=== PATIENT | male | born 1985 | race Caucasian/White ===

== ENCOUNTER 2017-08-08 11:11 | Emergency (ER) | payer OTHER ==
[~2017-08-08] VITALS: Ht 177.8 cm; Wt 106.6 kg
[2017-08-08] MEDS ORDERED: Prilosec Otc20 MG (11:28)
[2017-08-08 11:50] LABS: Source, Urine Clean Catch
[2017-08-08 12:30] LABS: BASOPHILS ABSOLUTE AUTO 0.04 K/mm3 (0.00-0.23); BASOPHILS PERCENT AUTO 1 % (0-2); EOSINOPHILS ABSOLUTE AUTO 0.07 K/mm3 (0.00-0.68); EOSINOPHILS PERCENT AUTO 1 % (0-6); Hematocrit 41.9 % (37.0-53.0); Hemoglobin 14.3 g/dL (13.5-17.5); IMMATURE GRAN ABSOLUTE AUTO 0.03 K/mm3 (0.00-0.10); IMMATURE GRAN PERCENT AUTO 0 % (0-1); LYMPHOCYTES ABSOLUTE AUTO 1.58 K/mm3 (0.84-5.20); LYMPHOCYTES PERCENT AUTO 20 % (21-46); MONOCYTES ABSOLUTE AUTO 0.69 K/mm3 (0.16-1.47); MONOCYTES PERCENT AUTO 9 % (4-13); Mean Corpuscular HGB 28.6 pg (26.0-34.0); Mean Corpuscular HGB Conc 34.1 g/dL (31.5-36.5); Mean Corpuscular Volume 84 fL (80-100); Mean Platelet Volume 8.5 fL (9.1-12.4); NEUTROPHILS PERCENT AUTO 69 % (41-73); Platelet Count 230 K/mm3 (150-400); RDW Standard Deviation 36.4 fL (35.1-46.3); White Blood Cell Count 7.81 K/mm3 (4.00-11.30)
[2017-08-08 12:31] LABS: Appearance, Urine Clear (Clear); Bilirubin, Urine Neg (Neg); Blood, Urine Neg (Neg); Color, Urine Yellow (P-Yellow); Glucose Qualitative, Urine Neg (Neg); Ketones, Urine Neg (Neg); Leukocyte Esterase, Urine Neg (Neg); Nitrite, Urine Neg (Neg); Protein, Urine 1+ (Neg); Urobilinogen, Urine 1+ (Normal)
[2017-08-08 12:48] LABS: Alanine Aminotransfer (ALT/SGP 40 U/L (12-78); Albumin, Blood 3.2 g/dL (3.4-5.0); Albumin/Globulin Ratio 0.8 (0.8-1.8); Alk Phos 69 U/L (50-136); Anion Gap 7 mmol/L (6-16); Aspartate Aminotrans (AST/SGOT 29 U/L (12-37); Bilirubin, Total 0.7 mg/dL (0.1-1.0); Blood Urea Nitrogen 9 mg/dL (8-24); Bun/Creatinine Ratio 11.1 (12.0-20.0); CO2, Blood 28 mmol/L (21-32); Calcium, Blood 8.4 mg/dL (8.5-10.1); Chloride, Blood 102 mmol/L (98-108); Creatinine, Blood 0.81 mg/dL (0.60-1.20); Glomerular Filtration Rate >60 (60-); Glucose, Blood 99 mg/dL (70-99); Sodium, Blood 137 mmol/L (136-145); Total Protein, Blood 7.2 g/dL (6.4-8.2)
[2017-08-08] MEDS ORDERED: Vibramycin100 MG PO (13:58)
== END 2017-08-08 14:19 | disposition home or self-care (01) ==
LOC: ER 11:11
PROVIDERS: Emergency Medicine
DX: J18.9 Pneumonia, unspecified organism (principal); K21.9 Gastro-esophageal reflux disease without esophagitis; Z87.891 Personal history of nicotine dependence; Z88.0 Allergy status to penicillin; Z79.899 Other long term (current) drug therapy
CPT/HCPCS: 71046; 74176; 80053; 83690; 85025; 93005; 93010; 96361; 96374; 99284; J3010; J7030

== ENCOUNTER → 2019-05-04 | Outpatient (CLI) | payer OTHER ==
[~2019-05-04] MED LIST: Ciloxan5 ML RIGHTEYE; Prilosec Otc20 MG; Vibramycin100 MG PO
[2019-05-04 10:21] LABS: Alanine Aminotransfer (ALT/SGP 112 U/L (12-78); Albumin, Blood 3.8 g/dL (3.4-5.0); Albumin/Globulin Ratio 0.9 (0.8-1.8); Alk Phos 75 U/L (50-136); Anion Gap 8 mmol/L (6-16); Aspartate Aminotrans (AST/SGOT 42 U/L (12-37); Bilirubin, Total 0.2 mg/dL (0.1-1.0); Blood Urea Nitrogen 15 mg/dL (8-24); Bun/Creatinine Ratio 20.9 (12.0-20.0); CO2, Blood 26 mmol/L (21-32); Calcium, Blood 9.1 mg/dL (8.5-10.1); Chloride, Blood 108 mmol/L (98-108); Creatinine, Blood 0.72 mg/dL (0.60-1.20); Globulin, Blood 4.1 g/dL (2.2-4.0); Glomerular Filtration Rate >60 (60-); Glucose, Blood 101 mg/dL (70-99); Potassium, Blood 4.1 mmol/L (3.5-5.5); Sodium, Blood 142 mmol/L (136-145); Total Protein, Blood 7.9 g/dL (6.4-8.2)
== END | disposition home or self-care (01) ==
LOC: LAB SHORT 08:53 → LAB 08:53
PROVIDERS: Nurse Practitioner
DX: I10 Essential (primary) hypertension (principal); R42 Dizziness and giddiness
CPT/HCPCS: 80053

== ENCOUNTER → 2019-05-11 | Outpatient (CLI) | payer OTHER ==
[~2019-05-11] MED LIST changes: +LISI5 PO
[2019-05-11 15:07] LABS: BASOPHILS ABSOLUTE AUTO 0.06 K/mm3 (0.00-0.23); BASOPHILS PERCENT AUTO 1 % (0-2); EOSINOPHILS ABSOLUTE AUTO 0.26 K/mm3 (0.00-0.68); EOSINOPHILS PERCENT AUTO 3 % (0-6); Hematocrit 53.8 % (37.0-53.0); IMMATURE GRAN ABSOLUTE AUTO 0.04 K/mm3 (0.00-0.10); IMMATURE GRAN PERCENT AUTO 1 % (0-1); LYMPHOCYTES ABSOLUTE AUTO 2.81 K/mm3 (0.84-5.20); LYMPHOCYTES PERCENT AUTO 35 % (21-46); MONOCYTES ABSOLUTE AUTO 0.67 K/mm3 (0.16-1.47); MONOCYTES PERCENT AUTO 8 % (4-13); Mean Corpuscular HGB 28.4 pg (26.0-34.0); Mean Corpuscular HGB Conc 33.5 g/dL (31.5-36.5); Mean Corpuscular Volume 85 fL (80-100); NEUTROPHILS ABSOLUTE AUTO 4.19 K/mm3 (1.96-9.15); NEUTROPHILS PERCENT AUTO 52 % (41-73); Platelet Count 302 K/mm3 (150-400); RDW Coefficient Variation 11.7 % (11.7-14.2); RDW Standard Deviation 36.2 fL (35.1-46.3); Red Blood Cell Count 6.34 M/mm3 (4.30-5.90); White Blood Cell Count 8.03 K/mm3 (4.00-11.30)
[2019-05-11 15:23] LABS: Alanine Aminotransfer (ALT/SGP 176 U/L (12-78); Albumin, Blood 4.1 g/dL (3.4-5.0); Albumin/Globulin Ratio 0.9 (0.8-1.8); Alk Phos 69 U/L (50-136); Anion Gap 5 mmol/L (6-16); Aspartate Aminotrans (AST/SGOT 141 U/L (12-37); Bilirubin, Total 0.6 mg/dL (0.1-1.0); Blood Urea Nitrogen 16 mg/dL (8-24); Bun/Creatinine Ratio 21.4 (12.0-20.0); CO2, Blood 26 mmol/L (21-32); Calcium, Blood 9.5 mg/dL (8.5-10.1); Chloride, Blood 102 mmol/L (98-108); Creatinine, Blood 0.75 mg/dL (0.60-1.20); Globulin, Blood 4.5 g/dL (2.2-4.0); Glomerular Filtration Rate >60 (60-); Glucose, Blood 109 mg/dL (70-99); Potassium, Blood 3.9 mmol/L (3.5-5.5); Sodium, Blood 133 mmol/L (136-145); Total Protein, Blood 8.6 g/dL (6.4-8.2); Troponin I <0.015 ng/mL (0.000-0.040)
[2019-05-11 15:39] LABS: CPK Creatine Kinase 5660 U/L (39-308)
== END | disposition home or self-care (01) ==
LOC: LAB SHORT 13:37 → LAB 13:37
PROVIDERS: Nurse Practitioner Family
DX: R07.9 Chest pain, unspecified (principal); R53.83 Other fatigue; M79.10 Myalgia, unspecified site; R68.84 Jaw pain
CPT/HCPCS: 80053; 82550; 84484; 85025

== ENCOUNTER 2023-04-06 04:22 | Emergency (ER) | payer OTHER ==
[~2023-04-06] VITALS: Ht 177.8 cm; Wt 109.8 kg
[2023-04-06 04:36] VITALS: BP 195/121
[2023-04-06] MEDS ORDERED: Ibuprofen 600 MG Tab PO ONE (05:15)
[2023-04-06] MEDS ORDERED: Lidocaine 4% 1 Patch TOP ONE (05:15)
[2023-04-06] MEDS ORDERED: OxyCODONE HCL 5 MG TAB PO ONE (05:15)
[2023-04-06] MEDS ORDERED: Acetaminophen 500 MG Tab PO ONE (05:20)
[2023-04-06] MEDS ORDERED: Ibuprofen600 MG PO (05:56)
[2023-04-06] MEDS ORDERED: ACET500 PO (05:56)
[2023-04-06] MEDS ORDERED: LIDO700A20 TOP (05:56)
== END 2023-04-06 06:30 | disposition home or self-care (01) ==
LOC: ER 04:22
DX: S33.5XXA Sprain of ligaments of lumbar spine, initial encounter (principal); Z87.891 Personal history of nicotine dependence; Z79.899 Other long term (current) drug therapy; Z88.0 Allergy status to penicillin; Z88.5 Allergy status to narcotic agent; X50.0XXA Overexertion from strenuous movement or load, initial encounter; Y93.F2 Activity, caregiving, lifting
CPT/HCPCS: 72100; 99283-25; A9270

== ENCOUNTER 2023-11-03 10:03 | Observation (INO) | payer OTHER ==
[~2023-11-03] VITALS: Ht 177.8 cm; Wt 102.3 kg
[~2023-11-03 10:03] MED LIST changes: +ACET500 PO; +Ibuprofen600 MG PO; +LIDO700A20 TOP
[2023-11-03 10:40] LABS: BASOPHILS ABSOLUTE AUTO 0.08 K/mm3 (0.00-0.23); BASOPHILS PERCENT AUTO 1 % (0-2); EOSINOPHILS ABSOLUTE AUTO 0.22 K/mm3 (0.00-0.68); EOSINOPHILS PERCENT AUTO 4 % (0-6); Hemoglobin 17.5 g/dL (13.5-17.5); IMMATURE GRAN ABSOLUTE AUTO 0.01 K/mm3 (0.00-0.10); IMMATURE GRAN PERCENT AUTO 0 % (0-1); LYMPHOCYTES ABSOLUTE AUTO 1.57 K/mm3 (0.84-5.20); LYMPHOCYTES PERCENT AUTO 25 % (21-46); MONOCYTES ABSOLUTE AUTO 0.59 K/mm3 (0.16-1.47); MONOCYTES PERCENT AUTO 10 % (4-13); Mean Corpuscular HGB 29.4 pg (26.0-34.0); Mean Corpuscular Volume 84 fL (80-100); Mean Platelet Volume 8.6 fL (9.1-12.4); NEUTROPHILS ABSOLUTE AUTO 3.76 K/mm3 (1.96-9.15); NEUTROPHILS PERCENT AUTO 60 % (41-73); Platelet Count 209 K/mm3 (150-400); RDW Standard Deviation 36.9 fL (35.1-46.3); Red Blood Cell Count 5.95 M/mm3 (4.30-5.90); White Blood Cell Count 6.23 K/mm3 (4.00-11.30)
[2023-11-03] MEDS ORDERED: Acetaminophen 500 MG Tab PO ONE (10:55)
[2023-11-03] MEDS ORDERED: Nitroglycerin 0.4 MG SUBL SL ONE (10:55)
[2023-11-03 11:01] LABS: Bun/Creatinine Ratio 11.2 (12.0-20.0); Calcium, Blood 9.5 mg/dL (8.5-10.1); Creatinine, Blood 0.71 mg/dL (0.60-1.20); Potassium, Blood 3.5 mmol/L (3.5-5.5)
[2023-11-03] MEDS ORDERED: HydrALAZINE HCl 20 MG / ML 1ML Vial IV ONE ×2 (12:45→13:35)
[2023-11-03] MEDS ORDERED: Aspirin 325 MG Tab PO ONE (13:50)
[2023-11-03] MEDS ORDERED: Furosemide 10 MG/ML 4ML Vial IV ONE (15:00)
[2023-11-03] MEDS ORDERED: Labetalol HCL 5 MG/ML 4ML Injection (Single Dose) IV PRN ×2 (15:00→15:10)
[2023-11-03] MEDS ORDERED: Lisinopril 10 MG Tab PO SCH (15:00)
[2023-11-03] MEDS ORDERED: LORazepam 1 MG Tab PO PRN (15:05)
[2023-11-03] MEDS ORDERED: Acetaminophen 325 MG TABLET PO PRN (15:05)
[2023-11-03] MEDS ORDERED: HYDROmorphone HCl/Pf 1MG SYR IV PRN (15:05)
[2023-11-03] MEDS ORDERED: Zolpidem Tartrate 10 MG Tab PO PRN (15:05)
[2023-11-03 16:19] VITALS: BP 174/106
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
[2023-11-03 21:03] VITALS: BP 152/84
[2023-11-03 21:47] VITALS: BP 152/84
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
[2023-11-04 03:55] VITALS: BP 154/92
--- NOTE | 2023-11-04 04:52 | NUR ---
SHIFT SUMMARY NO ACUTE CHANGES THIS SHIFT. PT CONTINUES TO REST IN BED SLEEPING BUT AROUSABLE. PT ANSWERS QUESTIONS APPROPRIATELY, FOLLOWS DIRECTON WHEN PROMPTED AND IS ABLE TO MAKE HIS NEEDS KNOWN. PT HAS L BKA WITH PROSTHESIS, AMBULATES IN THE ROOM INDEPENDENTLY. PT MOVES EXTREMITIES EQUALLY BILATERALLY. PT ANXIOUS AT TIMES, MEDICATED PER EMAR. HR 50-100'S, SBP 140-160'S. PT STATES THAT HE OCCASIONALLY HAS CHEST HEAVINESS THAT HE BELIEVES CORRELATES WITH HIS ANXIETY, HE ALSO STATES THAT HE FEELS SOB DURING THESE TIMES WELL. PT HAS EXPRESSED ONE EPISODE OF FEELING THIS WAY THIS SHIFT. PT ON RA, OXYGEN SATURATION WILL OCCASIONALLY DROP INTO THE 80'S WHILE THE PATIENT IS SLEEPING THEN QUICKLY COME BACK UP TO >95%. ABDOMEN SOFT AND ROUND, BOWEL TONES ACTIVE IN ALL FOUR QUADRANTS. PT AMBULATES TO BATHROOM IN ROOM TO VOID. PIV IN PLACE TO RAC SL. BED IN LOWEST POSITION, CALL LIGHT WITHIN REACH, CARE CONTINUES.
[2023-11-04 04:53] LABS: Bun/Creatinine Ratio 17.4 (12.0-20.0); Calcium, Blood 9.6 mg/dL (8.5-10.1); Creatinine, Blood 0.86 mg/dL (0.60-1.20)
--- NOTE | 2023-11-04 05:16 | NUR ---
PT UPDATE CALLED AND SPOKE WITH THE RESIDENT REGARDING PT AM LABS, ORDERS RECEIVED, SEE EMAR FOR MORE INFORMATION. CARE CONTINUES.
[2023-11-04] MEDS ORDERED: Potassium Chloride 20 MEQ TabCR PO ONE (05:20)
[2023-11-04 08:43] VITALS: BP 141/87
[2023-11-04] MEDS ORDERED: Enoxaparin 40 MG/0.4 ML SYR SC SCH (09:00)
[2023-11-04] MEDS ORDERED: BUSP5 PO (10:54)
[2023-11-04] MEDS ORDERED: Lisinopril-Hct1 EAC4 PO (10:55)
[2023-11-04 10:56] VITALS: BP 153/101
[2023-11-04] MEDS ORDERED: POTA10T PO (10:56)
--- NOTE | 2023-11-04 10:59 | NUR ---
UPDATE PT A&OX4, CALM AND COOPERATIVE WITH CARE. DENIES CP/ SOB THIS AM. BP MODERATELY ELEVATED AFTER DISCUSSING HOME STRESSORS. TOLERATING PO MEDS. INDEPENDENT IN ROOM. PLAN TO DISCHARGE TO HOME TODAY.
--- NOTE | 2023-11-04 11:39 | NUR ---
DC IV DC'D. PT DC'D TO HOME WITH SELF, AMBULATES WITHOUT ASSISTANCE. PRESCRIPTIONS SENT TO [facility].
== END 2023-11-04 11:35 | disposition home or self-care (01) ==
LOC: ER 10:03 → PCU 10:04
PROVIDERS: Emergency Medicine; ADMIT Internal Medicine
DX: I16.0 Hypertensive urgency (principal); I20.89 Other forms of angina pectoris; I10 Essential (primary) hypertension; F10.20 Alcohol dependence, uncomplicated; F41.9 Anxiety disorder, unspecified; R00.1 Bradycardia, unspecified; T46.3X5A Adverse effect of coronary vasodilators, initial encounter; R74.01 Elevation of levels of liver transaminase levels; Z89.512 Acquired absence of left leg below knee; Z87.891 Personal history of nicotine dependence; Z88.0 Allergy status to penicillin; Z88.5 Allergy status to narcotic agent; Z79.899 Other long term (current) drug therapy
CPT/HCPCS: 36415; 71045; 80048; 80053; 84484; 85025; 93005; 93010; 94762; 96372; 96374; 96375; 96376; 99285-25; A9270; G0378; J0360; J1650; J1940

== ENCOUNTER 2024-05-01 08:18 | Observation (INO) | payer OTHER ==
[~2024-05-01] VITALS: Ht 177.8 cm; Wt 95.0 kg
[~2024-05-01 08:18] MED LIST changes: +BUSP5 PO; +POTA10T PO; +Prinivil10 MG PO
[2024-05-01 10:12] LABS: BASOPHILS ABSOLUTE AUTO 0.07 K/mm3 (0.00-0.23); BASOPHILS PERCENT AUTO 1 % (0-2); EOSINOPHILS ABSOLUTE AUTO 0.14 K/mm3 (0.00-0.68); EOSINOPHILS PERCENT AUTO 2 % (0-6); Hematocrit 47.2 % (37.0-53.0); Hemoglobin 16.4 g/dL (13.5-17.5); IMMATURE GRAN ABSOLUTE AUTO 0.01 K/mm3 (0.00-0.10); IMMATURE GRAN PERCENT AUTO 0 % (0-1); LYMPHOCYTES ABSOLUTE AUTO 2.11 K/mm3 (0.84-5.20); LYMPHOCYTES PERCENT AUTO 32 % (21-46); MONOCYTES ABSOLUTE AUTO 0.66 K/mm3 (0.16-1.47); MONOCYTES PERCENT AUTO 10 % (4-13); Mean Corpuscular HGB 29.8 pg (26.0-34.0); Mean Corpuscular HGB Conc 34.7 g/dL (31.5-36.5); Mean Corpuscular Volume 86 fL (80-100); Mean Platelet Volume 8.2 fL (9.1-12.4); NEUTROPHILS ABSOLUTE AUTO 3.64 K/mm3 (1.96-9.15); NEUTROPHILS PERCENT AUTO 55 % (41-73); Platelet Count 206 K/mm3 (150-400); RDW Coefficient Variation 12.4 % (11.7-14.2); RDW Standard Deviation 39.1 fL (35.1-46.3); White Blood Cell Count 6.63 K/mm3 (4.00-11.30)
[2024-05-01 10:21] LABS: Bun/Creatinine Ratio 14.3 (12.0-20.0); Calcium, Blood 8.9 mg/dL (8.5-10.1); Creatinine, Blood 0.56 mg/dL (0.60-1.20); Potassium, Blood 3.5 mmol/L (3.5-5.5)
[2024-05-01] MEDS ORDERED: Aspirin 325 MG Tab PO ONE (12:40)
[2024-05-01] MEDS ORDERED: LORazepam 2 MG/ML 1ML Injection IV ONE ×3 (12:50→13:30)
[2024-05-01] MEDS ORDERED: LORazepam 2 MG/ML 1ML Injection ONE (13:23)
[2024-05-01] MEDS ORDERED: LORazepam 2 MG/ML 1ML Injection IV PRN (14:40)
[2024-05-01] MEDS ORDERED: FLU VACC TS2024-25(6MOS UP)/PF 45 MCG/0.5 ML SYRINGE IM PRN (14:40)
[2024-05-01] MEDS ORDERED: ChlordiazePOXIDE 25 MG Cap PO PRN (14:40)
[2024-05-01] MEDS ORDERED: Ondansetron HCl 2 MG / ML 2ML Vial IV PRN (14:40)
[2024-05-01] MEDS ORDERED: Folic Acid 1 MG in NS 50 ML IV SCH (14:41)
[2024-05-01] MEDS ORDERED: Thiamine HCl 250 MG in NS 100 ML IV SCH (16:00)
[2024-05-01 17:35] VITALS: BP 178/112
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
[2024-05-01 19:42] VITALS: BP 195/109
--- NOTE | 2024-05-01 19:56 | NUR ---
RN CALLED HOSPITALIST AT 1950 FOR PT BP 195/109. RN WAS INFORMED TO KEEP MONITORING BP AND TO CALL AGAIN IF SBP >220.
[2024-05-01] MEDS ORDERED: Gabapentin 300 MG Cap PO SCH (21:00)
[2024-05-01] MEDS ORDERED: Docusate Sodium 100 MG Cap PO SCH (21:00)
[2024-05-02] VITALS (10 sets, daily range): BP systolic 140–193; BP diastolic 78–134
[2024-05-02 05:24] LABS: BASOPHILS ABSOLUTE AUTO 0.08 K/mm3 (0.00-0.23); BASOPHILS PERCENT AUTO 1 % (0-2); EOSINOPHILS ABSOLUTE AUTO 0.24 K/mm3 (0.00-0.68); EOSINOPHILS PERCENT AUTO 3 % (0-6); Hematocrit 45.6 % (37.0-53.0); Hemoglobin 16.2 g/dL (13.5-17.5); IMMATURE GRAN ABSOLUTE AUTO 0.02 K/mm3 (0.00-0.10); IMMATURE GRAN PERCENT AUTO 0 % (0-1); LYMPHOCYTES ABSOLUTE AUTO 2.06 K/mm3 (0.84-5.20); LYMPHOCYTES PERCENT AUTO 27 % (21-46); MONOCYTES ABSOLUTE AUTO 0.74 K/mm3 (0.16-1.47); MONOCYTES PERCENT AUTO 10 % (4-13); Mean Corpuscular HGB 30.2 pg (26.0-34.0); Mean Corpuscular HGB Conc 35.5 g/dL (31.5-36.5); Mean Corpuscular Volume 85 fL (80-100); Mean Platelet Volume 8.6 fL (9.1-12.4); NEUTROPHILS ABSOLUTE AUTO 4.39 K/mm3 (1.96-9.15); NEUTROPHILS PERCENT AUTO 58 % (41-73); Platelet Count 189 K/mm3 (150-400); RDW Coefficient Variation 12.4 % (11.7-14.2); Red Blood Cell Count 5.37 M/mm3 (4.30-5.90); White Blood Cell Count 7.53 K/mm3 (4.00-11.30)
[2024-05-02 05:49] LABS: Albumin, Blood 3.4 g/dL (3.4-5.0); Albumin/Globulin Ratio 0.9 (0.8-1.8); Bilirubin, Total 1.2 mg/dL (0.1-1.0); Bun/Creatinine Ratio 17.7 (12.0-20.0); Calcium, Blood 8.9 mg/dL (8.5-10.1); Creatinine, Blood 0.62 mg/dL (0.60-1.20); Globulin, Blood 3.6 g/dL (2.2-4.0); Potassium, Blood 2.9 mmol/L (3.5-5.5)
--- NOTE | 2024-05-02 06:02 | NUR ---
SHIFT SUMMARY PT HAS BEEN RESTING IN BED OVERNIGHT. PT HAD COMPLAINTS OF ANXIETY, BUT IT HAS BEEN RELIEVED BY REST AND MEDICATIONS (SEE EMAR). PT AOX4, CALM AND COOPERATIVE. PT HAS LEFT SIDED WEAKNESS, AND REPORTS LEFT SIDED NUMBNESS AND TINGLING. PT HAS BEEN INDEPENDENT AMBULATING. PT IS ON TELEMETRY. NO ACUTE EVENTS OVERNIGHT.
[2024-05-02] MEDS ORDERED: Aspirin 81 MG Chew PO SCH (09:00)
[2024-05-02] MEDS ORDERED: Enoxaparin 40 MG/0.4 ML SYR SC SCH (09:00)
[2024-05-02] MEDS ORDERED: Atorvastatin 10 MG Tab PO SCH (09:00)
[2024-05-02] MEDS ORDERED: Metoprolol Tartrate 1 MG/ML 5 ML VIAL IV ONE (13:00)
[2024-05-02] MEDS ORDERED: NS 250 ML IV PRN (13:35)
[2024-05-02] MEDS ORDERED: Metoprolol Tartrate 1 MG/ML 5 ML VIAL IV PRN (16:40)
[2024-05-02] MEDS ORDERED: Potassium Chloride 10 Meq Tablet SA PO ONE (16:40)
[2024-05-02] MEDS ORDERED: Lisinopril 10 MG Tab PO SCH (17:00)
[2024-05-02] MEDS ORDERED: Lisinopril 10 MG Tab PO STA (18:43)
[2024-05-02] MEDS ORDERED: HydrALAZINE HCl 20 MG / ML 1ML Vial IV PRN (18:50)
--- NOTE | 2024-05-02 19:32 | NUR ---
SHIFT SUMMARY PATIENT A/OX4, ABLE TO MAKE NEEDS KNOWN. PLEASANT AND COOPERATIVE WITH STAFF. PATIENT COMPLAINING OF SEVERE ANXIETY. PATIENT ALSOS TATES HE HAS FEAR OF HOSPITALS. PRN ATIVAN ADMINISTERED PER MAY. MRI OBTAINED TODAY, NEGATIVE FOR CVA. POTASSIUM REPLACED ORALLY. PATIENT'S BLOOD PRESSURE ELAVATED 170-180s/110-120s ALL SHIFT, NOTIFIED THIS AM. NO BLOOD PRESSURE MEDICATIONS ADMINISTERED UNTIL RESULTS OF MRI RECIEVED TO ALLOW PERMISSIVE HYPERTENTION. MULTIPLE BLOOD PRESSURE MEDICATIONS ADMINISTERED PER MAR LATER THIS EVENING. NONE EFFECTIVE THUS FAR. PATIENT WANTING TO LEAVE AMA, BUT AFTER [facility] EDUCATION REGARDING [place] RISK FACTORS PATIENT AGREEABLE TO STAY. EX , CATHY, AT BEDSIDE AND PATIENT'S CHILDREN AT BEDSIDE CURRENTLY. PATIENT WITH FAMILY AT BEDSIDE THROUGHOUT THE SHIFT. TELEMETRY IN PLACE, NO EVENTS NOTED. NO OTHER CONCERNS AT THIS TIME. REPORT GIVEN TO PATTERN DRAFTER RN.
[2024-05-03 00:08] VITALS: BP 153/95
[2024-05-03 04:17] VITALS: BP 132/99
--- NOTE | 2024-05-03 05:03 | NUR ---
SHIFT SUMMARY PT A&Ox4. PT REPORTS ANXIETY AND MEDICATED PER EMAR. NO C/O PAIN. FAMILY AT BEDSIDE T/O NIGHT. VSS AND BLOOD PRESSURE IMPROVED T/O NIGHT BLOOD PRESSURE RANGE WAS 132-153/78-99. PT REPORTS LEFT SIDE DEFICITS THAT ARE IMPROVING. IND IN ROOM. NO EVENTS ON TELE. BED IN LOWEST POSITION AND CALL LIGHT IN REACH.
[2024-05-03 05:55] LABS: Anion Gap 10 mmol/L (3-11); Blood Urea Nitrogen 11 mg/dL (8-24); CHOL/HDL RATIO 3.7; CO2, Blood 26 mmol/L (21-32); Calcium, Blood 9.2 mg/dL (8.5-10.1); Chloride, Blood 105 mmol/L (98-108); Cholesterol 226 mg/dL (50-200); Creatinine, Blood 0.69 mg/dL (0.60-1.20); Glomerular Filtration Rate 120 (60-); Glucose, Blood 102 mg/dL (70-99); HDL Cholesterol 61 mg/dL (>39); LDL/HDL RATIO 2.4; Low Density Lipoprotein Chol 147 mg/dL (0-110); Magnesium, Blood 1.9 mg/dL (1.6-2.4); Potassium, Blood 3.4 mmol/L (3.5-5.5); Sodium, Blood 138 mmol/L (136-145); Triglycerides 88 mg/dL (30-160); Very Low Density Lipoprot Chol 17 mg/dL (6-32)
[2024-05-03 07:22] VITALS: BP 166/107
[2024-05-03] MEDS ORDERED: Metoprolol Succinate 25 MG TABCR PO SCH (09:00)
[2024-05-03] MEDS ORDERED: Lisinopril 20 MG Tab PO SCH (09:00)
[2024-05-03 09:40] VITALS: BP 143/98
[2024-05-03 10:38] VITALS: BP 146/95
[2024-05-03 11:46] VITALS: BP 158/104
[2024-05-03] MEDS ORDERED: METO25ER PO (12:26)
[2024-05-03] MEDS ORDERED: ASPI81CH PO (12:26)
[2024-05-03] MEDS ORDERED: ATOR20 PO (12:26)
[2024-05-03] MEDS ORDERED: ALPR.25 PO (12:27)
--- NOTE | 2024-05-03 13:11 | NUR ---
pt discharged PT VERBALIZED UNDERSTANDING OF THE DC INSTRUCTIONS. PTS PRESCRIPTIONS FAXED TO [facility]. PT WAS GIVEN A PRESCRIPTION HARD COPY FOR XANAX. THE PT DECLINED A WHEELCHAR TRANSPORT AND AMBULATED OUY ON HIS OWN ACCORDN STEADY ON HIS FEET
--- NOTE | 2024-05-03 13:32 | NUR ---
PT DISCHARGED HOME WITH FAMILY. EDUCATION PROVIDED, ALL BELONGINGS SENT WITH PT.
== END 2024-05-03 13:46 | disposition home or self-care (01) ==
LOC: ER 08:18 → MEDS 08:19 → ENPENDDIS 05-03 11:24 → MEDS 05-03 13:46
PROVIDERS: Internal Medicine; Student in an Organized Health Care Education/Training Program; ADMIT Internal Medicine
DX: R53.1 Weakness (principal); R29.810 Facial weakness; R20.2 Paresthesia of skin; R20.0 Anesthesia of skin; I16.0 Hypertensive urgency; E87.6 Hypokalemia; F41.0 Panic disorder [episodic paroxysmal anxiety]; F10.20 Alcohol dependence, uncomplicated; I10 Essential (primary) hypertension; Z88.0 Allergy status to penicillin; Z79.899 Other long term (current) drug therapy
CPT/HCPCS: 36415; 70450; 70496; 70498; 70551; 71046; 72125; 80048; 80053; 80061; 83735; 84484; 85025; 85379; 93005; 93010; 93306; 96365-59; 96366; 96368; 96372; 96375; 96375-59; 96376; 99285-25; A9270; G0378; J0360; J1650; J2060; J3411; J7050; Q9967

== ENCOUNTER 2024-10-24 10:45 | Observation (INO) | payer OTHER ==
[~2024-10-24] VITALS: Ht 177.8 cm; Wt 90.0 kg
[~2024-10-24 10:45] MED LIST changes: +ALPR.25 PO; +ASPI81CH PO; +ATOR20 PO; +METO25ER PO
[2024-10-24] MEDS ORDERED: NS 1,000 ML IV SCH ×2 (11:05→12:20)
[2024-10-24] MEDS ORDERED: LORazepam 2 MG/ML 1ML Injection IV ONE ×2 (11:05→15:30)
[2024-10-24 11:17] LABS: BASOPHILS ABSOLUTE AUTO 0.09 K/mm3 (0.00-0.23); BASOPHILS PERCENT AUTO 2 % (0-2); EOSINOPHILS ABSOLUTE AUTO 0.21 K/mm3 (0.00-0.68); EOSINOPHILS PERCENT AUTO 4 % (0-6); Hematocrit 47.0 % (37.0-53.0); Hemoglobin 16.4 g/dL (13.5-17.5); IMMATURE GRAN ABSOLUTE AUTO 0.02 K/mm3 (0.00-0.10); IMMATURE GRAN PERCENT AUTO 0 % (0-1); LYMPHOCYTES ABSOLUTE AUTO 1.62 K/mm3 (0.84-5.20); LYMPHOCYTES PERCENT AUTO 28 % (21-46); MONOCYTES ABSOLUTE AUTO 0.43 K/mm3 (0.16-1.47); MONOCYTES PERCENT AUTO 7 % (4-13); Mean Corpuscular HGB Conc 34.9 g/dL (31.5-36.5); Mean Corpuscular Volume 89 fL (80-100); NEUTROPHILS ABSOLUTE AUTO 3.43 K/mm3 (1.96-9.15); NEUTROPHILS PERCENT AUTO 59 % (41-73); NRBC ABSOLUTE 0.00 K/mm3 (0.00-0.02); NRBC Auto 0.0 /100 WBC (0.0-0.2); Platelet Count 181 K/mm3 (150-400); RDW Coefficient Variation 11.9 % (11.7-14.2); RDW Standard Deviation 38.6 fL (35.1-46.3)
[2024-10-24 12:36] LABS: Alanine Aminotransfer (ALT/SGP 130.0 U/L (12-78); Albumin, Blood 3.9 g/dL (3.4-5.0); Albumin/Globulin Ratio 1.0 (0.8-1.8); Anion Gap 14.0 mmol/L (3-11); Aspartate Aminotrans (AST/SGOT 128.0 U/L (12-37); Bilirubin, Total 0.8 mg/dL (0.1-1.0); Blood Urea Nitrogen 7.0 mg/dL (8-24); CO2, Blood 25.0 mmol/L (21-32); Calcium, Blood 8.5 mg/dL (8.5-10.1); Chloride, Blood 104.0 mmol/L (98-108); Creatinine, Blood 0.6 mg/dL (0.60-1.20); Globulin, Blood 4.1 g/dL (2.2-4.0); Glucose, Blood 83.0 mg/dL (70-99); Potassium, Blood 3.6 mmol/L (3.5-5.5); Sodium, Blood 139.0 mmol/L (136-145); Total Protein, Blood 8.0 g/dL (6.4-8.2)
[2024-10-24 13:04] LABS: U Amphetamine Screen Not Detected; U Barbituate Screen Not Detected; U Benzodiazapine Screen DETECTED; U Buprenorphine Screen Not Detected; U Cannabinoids Screen Not Detected; U Cocaine Screen DETECTED; U Methadone Screen Not Detected; U Methamphetamine Screen Not Detected; U Opiates Screen Not Detected; U Oxycodone Screen Not Detected; U Phencyclidine Screen Not Detected
[2024-10-24] MEDS ORDERED: Diazepam 5 MG / ML 2ML SYR IV STA (15:11)
[2024-10-24 16:59] VITALS: BP 168/117
[2024-10-24] MEDS ORDERED: LISI20 PO (17:36)
[2024-10-24] MEDS ORDERED: LORA10ER PO (17:37)
--- NOTE | 2024-10-24 18:11 | NUR ---
ARRIVAL TO PCU REPORT RECIEVED FROM ER NURSE AT 1640. PT ARRIVED TO PCU AT 1710 VIA GURNEY AND ON RA/ PT ABLE TO TRANSFER FROM GURNEY TO BED WITH ASSISTANCE, TOLERATED WELL. PT WITH LEFT BKA. A/OX4, ANXIOUS. PT ABLE TO ANSWER ORIENTATION QUESTIONS APPROPIATELY. NO REPORT OF SOB OR CHEST PAIN AT THIS TIME.
[2024-10-24 19:57] VITALS: BP 159/98
[2024-10-24 23:23] VITALS: BP 187/128
[2024-10-25] VITALS (8 sets, daily range): BP systolic 155–191; BP diastolic 94–119
[2024-10-25 04:43] LABS: CHOL/HDL RATIO 3.0; Cholesterol 239 mg/dL (50-200); HDL Cholesterol 79 mg/dL (>39); LDL/HDL RATIO 1.8; Low Density Lipoprotein Chol 146 mg/dL (0-110); Triglycerides 70 mg/dL (30-160); Very Low Density Lipoprot Chol 14 mg/dL (6-32)
--- NOTE | 2024-10-25 04:44 | NUR ---
SHIFT SUMMARY. SHIFT HAS GONE WELL OVERALL. PT AOX4, PLEASANT, COOPERATIVE, ABLE TO MAKE NEEDS KNOWN. HAS BEEN ABLE TO REST COMFORTABLY THROUGHOUT MOST OF SHIFT THUS FAR. HAS DENIED PAIN OUTSIDE OF MILD HEADACHE AT TIMES THROUGHOUT SHIFT. HAS BEEN RUNNING SINUS ON TELE, MAINTAINS ADEQUATE SATURATION ON ROOM AIR. BP HAS BEEN SOMEWHAT ELEVATED THROUGHOUT SHIFT. MORESO THIS MORNING, SPOKE WITH DR. OVIEDO WHO ORDERED MANAGEMENT VIA EMAR. OTHERWISE SHIFT HAS GONE WELL. MEDICATED PER CIWA PROTOCOL 1X THUS FAR. BED LOCKED IN LOWEST POSITION. CALL LIGHT LEFT WITHIN REACH. CONTINUING TOMONITOR.
[2024-10-25] MEDS ORDERED: Labetalol HCL 5 MG/ML 4ML Injection (Single Dose) IV ONE (05:00)
[2024-10-25] MEDS ORDERED: Enoxaparin 40 MG/0.4 ML SYR SC SCH (09:00)
[2024-10-25] MEDS ORDERED: Multivitamins 1 Tab PO SCH (09:00)
[2024-10-25] MEDS ORDERED: ATOR80 PO (11:47)
[2024-10-25] MEDS ORDERED: CLOP75 PO (11:47)
[2024-10-25] MEDS ORDERED: METO25 PO (11:49)
[2024-10-25] MEDS ORDERED: B-1100 M1 PO (11:52)
[2024-10-25] MEDS ORDERED: CLON.5 PO (11:52)
[2024-10-25] MEDS ORDERED: Hydroxyzine HCl25 MG PO (11:53)
[2024-10-25] MEDS ORDERED: VENL75ER PO (11:56)
--- NOTE | 2024-10-25 11:57 | NUR ---
CONTACTED , UPDATED ON ELEVATED BP. MD INSTRUCTED THIS RN TO ADMINISTER LIBRIUM AND RECHECK BP.
[2024-10-25] MEDS ORDERED: ONE DAILY ESS400 MCG PO (11:58)
[2024-10-25] MEDS ORDERED: HydrALAZINE HCl 20 MG / ML 1ML Vial IV ONE (13:25)
--- NOTE | 2024-10-25 14:19 | NUR ---
DISCHARGE NOTE this rn went over discharge education with the patient, follow up appointments and new medications. patient verbalized understanding. patient left with all belongings and in no distress.
== END 2024-10-25 14:12 | disposition home or self-care (01) ==
LOC: ER 10:45 → PCU 10:46 → ER 13:59 → PCU 13:59
PROVIDERS: Student in an Organized Health Care Education/Training Program; ADMIT Internal Medicine
DX: I16.0 Hypertensive urgency (principal); I10 Essential (primary) hypertension; F41.0 Panic disorder [episodic paroxysmal anxiety]; F10.10 Alcohol abuse, uncomplicated; F14.90 Cocaine use, unspecified, uncomplicated; Z79.82 Long term (current) use of aspirin; Z79.899 Other long term (current) drug therapy; Z88.0 Allergy status to penicillin; Z91.012 Allergy to eggs; Z91.018 Allergy to other foods; Z87.891 Personal history of nicotine dependence; Z89.512 Acquired absence of left leg below knee
CPT/HCPCS: 36415; 70450; 70496; 70498; 80053; 80061; 85025; 93005; 93010; 93306; 96361-59; 96374-59; 96375; 97165; 99285-25; A9270; G0378; J0360; J1650; J2060; J3411; J7030; Q9967

== ENCOUNTER 2024-12-03 02:24 | Day surgery (SDC) | payer OTHER ==
[~2024-12-03 02:24] MED LIST changes: +ATOR80 PO; +B-1100 M1 PO; +CLON.5 PO; +CLOP75 PO; +Hydroxyzine HCl25 MG PO; +LISI20 PO; +LORA10ER PO; +METO25 PO; +ONE DAILY ESS400 MCG PO; +VENL75ER PO; +Voltaren100 GM TOP
[2024-12-03] MEDS ORDERED: Lidocaine HCl 4% Cream 5 GM ONE (13:19)
[2024-12-03] MEDS ORDERED: Miconazole Nitrate 2% 85 GM PWD ONE (14:27)
== END 2024-12-03 22:00 | disposition home or self-care (01) ==
LOC: WOUND 02:24
DX: S80.212D Abrasion, left knee, subsequent encounter (principal); S81.801D Unspecified open wound, right lower leg, subsequent encounter; B35.3 Tinea pedis; I10 Essential (primary) hypertension; I73.9 Peripheral vascular disease, unspecified; Z89.512 Acquired absence of left leg below knee; Z88.0 Allergy status to penicillin; Z88.5 Allergy status to narcotic agent; Z87.891 Personal history of nicotine dependence
CPT/HCPCS: A6196; A6213; A9270; G0463

== ENCOUNTER 2024-12-10 00:43 | Day surgery (SDC) | payer OTHER ==
[2024-12-10] MEDS ORDERED: Miconazole Nitrate 2% 85 GM PWD ONE (11:45)
== END 2024-12-10 23:00 | disposition home or self-care (01) ==
LOC: WOUND 00:43
DX: S81.801A Unspecified open wound, right lower leg, initial encounter (principal); X58.XXXA Exposure to other specified factors, initial encounter; S80.212D Abrasion, left knee, subsequent encounter; X58.XXXD Exposure to other specified factors, subsequent encounter; B35.3 Tinea pedis; Z89.512 Acquired absence of left leg below knee
CPT/HCPCS: A6196; A6213; A9270; G0463

== ENCOUNTER 2024-12-26 00:28 | Day surgery (SDC) | payer OTHER ==
[2024-12-26] MEDS ORDERED: Lidocaine HCl 4% Cream 5 GM ONE (14:53)
[2024-12-26] MEDS ORDERED: Miconazole Nitrate 2% 85 GM PWD ONE (15:57)
== END 2024-12-26 23:00 | disposition home or self-care (01) ==
LOC: WOUND 00:28
DX: S80.212D Abrasion, left knee, subsequent encounter (principal); X58.XXXD Exposure to other specified factors, subsequent encounter; L97.512 Non-pressure chronic ulcer of other part of right foot with fat layer exposed; Z89.512 Acquired absence of left leg below knee
CPT/HCPCS: A6196; A6213; A9270; G0463

== ENCOUNTER 2025-01-06 10:39 | Emergency (ER) | payer OTHER ==
[~2025-01-06] VITALS: Ht 177.8 cm; Wt 102.1 kg
[2025-01-06 10:44] VITALS: BP 203/127
[2025-01-06 11:38] LABS: BASOPHILS ABSOLUTE AUTO 0.07 K/mm3 (0.00-0.23); BASOPHILS PERCENT AUTO 1 % (0-2); EOSINOPHILS ABSOLUTE AUTO 0.12 K/mm3 (0.00-0.68); EOSINOPHILS PERCENT AUTO 2 % (0-6); Hematocrit 45.5 % (37.0-53.0); Hemoglobin 15.3 g/dL (13.5-17.5); IMMATURE GRAN ABSOLUTE AUTO 0.02 K/mm3 (0.00-0.10); IMMATURE GRAN PERCENT AUTO 0 % (0-1); LYMPHOCYTES ABSOLUTE AUTO 1.17 K/mm3 (0.84-5.20); LYMPHOCYTES PERCENT AUTO 23 % (21-46); MONOCYTES ABSOLUTE AUTO 0.43 K/mm3 (0.16-1.47); MONOCYTES PERCENT AUTO 8 % (4-13); Mean Corpuscular HGB Conc 33.6 g/dL (31.5-36.5); Mean Corpuscular Volume 89 fL (80-100); NEUTROPHILS ABSOLUTE AUTO 3.32 K/mm3 (1.96-9.15); NEUTROPHILS PERCENT AUTO 65 % (41-73); NRBC ABSOLUTE 0.00 K/mm3 (0.00-0.02); NRBC Auto 0.0 /100 WBC (0.0-0.2); Platelet Count 127 K/mm3 (150-400); RDW Coefficient Variation 12.2 % (11.7-14.2); RDW Standard Deviation 39.7 fL (35.1-46.3)
[2025-01-06 12:00] LABS: Alanine Aminotransfer (ALT/SGP 287.0 U/L (12-78); Albumin, Blood 4.1 g/dL (3.4-5.0); Albumin/Globulin Ratio 1.0 (0.8-1.8); Anion Gap 11.0 mmol/L (3-11); Aspartate Aminotrans (AST/SGOT 219.0 U/L (12-37); Bilirubin, Total 0.7 mg/dL (0.1-1.0); Blood Urea Nitrogen 4.0 mg/dL (8-24); CO2, Blood 29.0 mmol/L (21-32); Calcium, Blood 9.1 mg/dL (8.5-10.1); Chloride, Blood 99.0 mmol/L (98-108); Creatinine, Blood 0.56 mg/dL (0.60-1.20); Globulin, Blood 4.0 g/dL (2.2-4.0); Glucose, Blood 96.0 mg/dL (70-99); Potassium, Blood 3.7 mmol/L (3.5-5.5); Sodium, Blood 135.0 mmol/L (136-145); Total Protein, Blood 8.1 g/dL (6.4-8.2)
[2025-01-06] MEDS ORDERED: LORazepam 2 MG/ML 1ML Injection IV ONE (12:55)
[2025-01-06] MEDS ORDERED: LEVE500 PO (12:56)
== END 2025-01-06 13:05 | disposition home or self-care (01) ==
LOC: ER 10:39
PROVIDERS: Emergency Medicine
DX: R56.9 Unspecified convulsions (principal); R79.89 Other specified abnormal findings of blood chemistry; I10 Essential (primary) hypertension; E78.5 Hyperlipidemia, unspecified; Z87.891 Personal history of nicotine dependence; Z88.0 Allergy status to penicillin; Z91.018 Allergy to other foods; Z91.0120 Allergy to eggs, unspecified; Z79.82 Long term (current) use of aspirin; Z79.02 Long term (current) use of antithrombotics/antiplatelets; Z79.899 Other long term (current) drug therapy
CPT/HCPCS: 70450; 80053; 85025; 93005; 93010; 96374; 99284-25; J2060

== ENCOUNTER 2025-02-05 08:18 | Emergency (ER) | payer OTHER ==
[~2025-02-05] VITALS: Ht 180.3 cm; Wt 99.8 kg
[~2025-02-05 08:18] MED LIST changes: +LEVE500 PO
[2025-02-05 08:40] VITALS: BP 154/104
[2025-02-05] MEDS ORDERED: Ondansetron 4 MG SoluTab SL ONE (11:00)
[2025-02-05 11:07] LABS: BASOPHILS ABSOLUTE AUTO 0.13 K/mm3 (0.00-0.23); BASOPHILS PERCENT AUTO 2 % (0-2); EOSINOPHILS ABSOLUTE AUTO 0.16 K/mm3 (0.00-0.68); EOSINOPHILS PERCENT AUTO 3 % (0-6); Hematocrit 46.7 % (37.0-53.0); Hemoglobin 16.1 g/dL (13.5-17.5); IMMATURE GRAN ABSOLUTE AUTO 0.02 K/mm3 (0.00-0.10); IMMATURE GRAN PERCENT AUTO 0 % (0-1); LYMPHOCYTES ABSOLUTE AUTO 1.40 K/mm3 (0.84-5.20); LYMPHOCYTES PERCENT AUTO 22 % (21-46); MONOCYTES ABSOLUTE AUTO 0.57 K/mm3 (0.16-1.47); MONOCYTES PERCENT AUTO 9 % (4-13); Mean Corpuscular HGB Conc 34.5 g/dL (31.5-36.5); Mean Corpuscular Volume 88 fL (80-100); NEUTROPHILS ABSOLUTE AUTO 4.13 K/mm3 (1.96-9.15); NEUTROPHILS PERCENT AUTO 65 % (41-73); NRBC ABSOLUTE 0.00 K/mm3 (0.00-0.02); NRBC Auto 0.0 /100 WBC (0.0-0.2); Platelet Count 156 K/mm3 (150-400); RDW Coefficient Variation 12.3 % (11.7-14.2); RDW Standard Deviation 40.2 fL (35.1-46.3)
[2025-02-05 11:25] LABS: Ethanol (Alcohol), Blood, Med 243 mg/dL; Salicylate <1.7 mg/dL (2.8-20.0)
[2025-02-05 11:52] LABS: Source, Urine Clean Catch
[2025-02-05 11:53] LABS: Acetaminophen, Random <2.0 ug/mL (10.0-30.0); Alanine Aminotransfer (ALT/SGP 194 U/L (12-78); Albumin, Blood 4.1 g/dL (3.4-5.0); Albumin/Globulin Ratio 1.1 (0.8-1.8); Anion Gap 13 mmol/L (3-11); Aspartate Aminotrans (AST/SGOT 165 U/L (12-37); Bilirubin, Total 0.9 mg/dL (0.1-1.0); Blood Urea Nitrogen 6 mg/dL (8-24); CO2, Blood 26 mmol/L (21-32); Calcium, Blood 8.8 mg/dL (8.5-10.1); Chloride, Blood 99 mmol/L (98-108); Creatinine, Blood 0.57 mg/dL (0.60-1.20); Globulin, Blood 3.9 g/dL (2.2-4.0); Glucose, Blood 93 mg/dL (70-99); Potassium, Blood 3.8 mmol/L (3.5-5.5); Sodium, Blood 134 mmol/L (136-145); Total Protein, Blood 8.0 g/dL (6.4-8.2)
[2025-02-05 13:03] LABS: Bilirubin, Urine Neg (Neg); Color, Urine Yellow (P-Yellow); Glucose Qualitative, Urine Neg (Neg); Ketones, Urine 2+ (Neg); Leukocyte Esterase, Urine Neg (Neg); Protein, Urine 1+ (Neg); Specific Gravity, Urine 1.005 (1.003-1.022); Urobilinogen, Urine NORM (Normal)
[2025-02-05 13:27] LABS: U Amphetamine Screen Not Detected; U Barbiturate Screen Not Detected; U Benzodiazapine Screen Not Detected; U Cocaine Screen Not Detected; U Methamphetamine Screen Not Detected
[2025-02-05 13:28] LABS: U Buprenorphine Screen Not Detected; U Cannabinoids Screen DETECTED; U Methadone Screen Not Detected; U Opiates Screen Not Detected; U Oxycodone Screen Not Detected; U Phencyclidine Screen Not Detected
[2025-02-05] MEDS ORDERED: Naltrexone HCl50 MG PO (14:25)
[2025-02-05] MEDS ORDERED: CHLO25 PO (14:25)
== END 2025-02-05 15:10 | disposition home or self-care (01) ==
LOC: ER 08:18
PROVIDERS: Emergency Medicine
DX: F10.139 Alcohol abuse with withdrawal, unspecified (principal); F41.0 Panic disorder [episodic paroxysmal anxiety]; F32.A Depression, unspecified; K62.5 Hemorrhage of anus and rectum; E78.5 Hyperlipidemia, unspecified; I10 Essential (primary) hypertension; Z87.891 Personal history of nicotine dependence; Z88.0 Allergy status to penicillin; Z91.018 Allergy to other foods; Z91.0120 Allergy to eggs, unspecified; Z79.82 Long term (current) use of aspirin; Z79.02 Long term (current) use of antithrombotics/antiplatelets; Z79.899 Other long term (current) drug therapy
CPT/HCPCS: 80053; 80320; 85025; 99283-25; A9270; G0480